=== PATIENT | female | born 1985 | race Caucasian/White ===

== ENCOUNTER 2017-07-09 02:47 | Emergency (ER) | payer OTHER ==
[2017-07-09 03:01] VITALS: O2SAT 100
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
[2017-07-09 04:02] VITALS: BP 103/68; PULSE 93; RESP 18; TEMP 98.2
== END 2017-07-09 04:02 | disposition home or self-care (01) ==
LOC: C.ER 02:47
DX: F41.9 Anxiety disorder, unspecified (principal)